=== PATIENT | female | born 1940 | race Caucasian/White ===

== ENCOUNTER → 2016-08-07 | Outpatient (CLI) | payer MEDICARE ==
[~2016-08-07] MED LIST: BACL10TA; BACL10TA PO; CALC-196 PO; CHOL100011 PO; CIPR500T78 PO; CYAN100015 SL; DIAZ10TA PO; DICL50TA3 PO; DIPH1TAB45 PO; DOXY100C2 PO; DULO60CA58; DULO60CA58 PO; DULO60CA6 PO; HYDR-1231 PO; HYDR-2890 PO; HYDR-3816 PO; HYDR-757 PO; IBP600T1 PO; IBUP-30 PO; LEVO137T17 PO; LEVOTHROID PO; LIPITOR; LVT.15T PO; MECL25TA3 PO; MELO15TA39; METO50TA7 PO; NAPR220C11 PO; OMG1KC PO; ONDA-42 SL; PRD20T PO; RALO60TA12; SCOP1PAT TD; SNN187T PO; VITA400T9 PO
--- OUTSIDE RECORDS SUMMARY | 2016-08-07 08:55 | XMS REPORT | Continuity of Care Document ---
Author Author [facility] Organization [facility] Address Unknown Phone Unavailable Care Team Providers Care Surveillance Supervisor Name Role Phone LUIS ENRIQUE CHOPRA DO PCP Insurance Providers Payer Name Policy Number Subscriber Name Relationship [employer] [place] [id number] Debra Tripathi 18 Self / Same As Patient Advance Directives Directive Response Recorded Date/Time Advance Directives No 12/11/14 1:45pm Health Care Power of Voice Intercept Technician No 12/11/14 1:45pm Organ Donor No 10/31/13 9:29am Problems Medical Problems Problem Onset Date Status Atypical chest pain Unknown Active Headache Unknown Active Nausea Unknown Active Medications Medication Dose Route Sig Days/Qty Instructions Order Date Discontinued Date Status [Lipitor] 12/04/06 09/11/11 Discontinued Levothyroxine Sodium (Levothroid) 150 Mcg PO DAILY 09/12/11 Discontinued Fish Oil 1,000 Mg PO DAILY 09/12/11 05/07/13 Discontinued Diclofenac Potassium 50 Mg PO THREE TIMES A DAY 10/17/11 05/07/13 Discontinued Metoprolol Succinate 1 Each PO DAILY 10/24/11 05/07/13 Discontinued Senna 17.2 Mg PO TWICE A DAY 10/24/11 05/07/13 Discontinued Diazepam 1 Each PO DAILY PRN 10/24/11 05/07/13 Discontinued Hydrocodone Bit/Acetaminophen 1 Each PO 10/24/11 05/07/13 Discontinued Duloxetine HCl 60 Mg PO DAILY 05/07/13 12/11/14 Discontinued Levothyroxine Sodium 150 Mcg PO DAILY 05/07/13 12/11/14 Discontinued Naproxen Sodium 440 Mg PO TWICE A DAY TAKES 2 (220MG) CAPSULES Active Ondansetron Hcl 4 Mg SL EVERY 4HRS PRN NAUSEA 10 Qty 05/07/13 Discontinued Ibuprofen 600 Mg PO Q8HR PRN PRN PAIN 20 Qty 05/07/13 12/11/14 Discontinued Doxycycline Hyclate (Vibramycin) 100 Mg PO TWICE A DAY 10 Days 10/28/13 Discontinued Baclofen (Lioresal) 1 Each PO THREE TIMES A DAY 10/28/13 12/11/14 Discontinued Ciprofloxacin HCl 500 Mg PO TWICE A DAY 6 Qty 10/28/13 12/11/14 Discontinued Hydrocodone Bit/Acetaminophen 1-2 Tab PO EVERY 4HRS PRN PAIN 14 Qty 12/11/14 Discontinued Hydrocodone Bit/Acetaminophen 1 Ea PO EVERY 6 HOURS PRN MILD PAIN 30 Qty 10/31/13 12/11/14 Discontinued Prednisone 40 Mg PO DAILY 5 Days 10/31/13 12/11/14 Discontinued Levothyroxine Sodium 137 Mcg PO DAILY 12/11/14 Active Duloxetine HCl 60 Mg PO DAILY 12/11/14 Active Calcium Carbonate/Vitamin D3 1 Tab PO DAILY 12/11/14 Active Cholecalciferol 1,000 Unit PO DAILY 12/11/14 Active Cyanocobalamin 1,000 Mcg SL DAILY 12/11/14 Active Vitamin E Mixed 400 Unit PO DAILY 12/11/14 Active Ibuprofen 400 Mg PO TWICE A DAY PRN PAIN 12/11/14 12/12/14 Discontinued Social History Social History Problem Response Recorded Date/Time Alcohol Use Occasionally Uses 12/11/2014 1:50pm Recreational Drug Use No 12/11/2014 1:50pm Recent Foreign Travel No 10/31/2013 9:29am Recent Infectious Disease Exposure No 10/31/2013 9:29am Sexually Transmitted Disease No 12/11/2014 1:50pm HIV/AIDS No 12/11/2014 1:50pm Do you dip or chew tobacco? No 12/11/2014 1:42pm Hospital Discharge Instructions Patient Instructions Physician Instructions Plan of Care/Instructions/FU: Fwup 1week Activity as Tolerated: Yes Discharge Diet: No Restrictions Care Plan Patient Instructions:: Fwup 1week Plan of Care Discharge Date 12/12/14 8:57am Instructions/Education Provided Dehydration (GEN) Prescriptions See Medications Section Referrals ORENDNAINLUIS ENRIQUE Angelina BOSWELL (Unspecified) 12/18/14 Address: [address] [place] [id number] Reason(s) for Referral: DECEMBER 18, 2014 AT 11:00 Functional Status No functional status results. Allergies, Adverse Reactions, Alerts Allergen Type Severity Reaction Status Last Updated No Known Drug Allergies Active 12/04/06 Immunizations Name Given Type Date of Pneumonia Vaccine 04/15/10 Historical Date of Influenza Vaccine 04/14/13 Historical Hepatitis A No Historical Hepatitis B No Historical Tetanus Booster (TDap) More than 5yrs Historical Vital Signs Acute Vital Signs Vital Response Date/Time Temperature (Fahrenheit) 96.8 degrees F (97.6 - 99.5) Temperature (Calculated Celsius) 36.46241 degrees C (36.4 - 37.5) Temperature Source Tympanic Pulse Rate (adult) 78 bpm (60 - 90) Respiratory Rate 18 bpm (12 - 24) O2 Sat by Pulse Oximetry 97 % (88 - 100) Blood Pressure 152/72 mm Hg Blood Pressure Mean 98 mm Hg Pain Pain Intensity 0 Height (Feet) 5 feet Height (Inches) 2.00 inches Height (Calculated Centimeters) 157.978318 cm Weight (Pounds) 117 pounds Weight (Ounces) 9.0 oz Weight (Calculated Grams) 29318.454 gm Weight (Calculated Kilograms) 53.034848 kilograms Calculated BMI 20.67 Results Laboratory Results Test Name Result Units Flags Reference Collection Date/Time Result Date/ Time Comments White Blood Count 6.9 10^3/uL 4.3-11.0 12/11/2014 12:59pm 12/11/2014 1: 06pm Red Blood Count 4.83 10^6/uL 4.35-5.85 12/11/2014 12:59pm 12/11/2014 1: 06pm Hemoglobin 15.3 G/DL 11.5-16.0 12/11/2014 12:59pm 12/11/2014 1:06pm Hematocrit 44 % 35-52 12/11/2014 12:59pm 12/11/2014 1:06pm Mean Corpuscular Volume 92 FL 80-99 12/11/2014 12:59pm 12/11/2014 1: 06pm Mean Corpuscular Hemoglobin 32 PG 25-34 12/11/2014 12:59pm 12/11/2014 1 :06pm Mean Corpuscular Hemoglobin Concent 35 G/DL 32-36 12/11/2014 12:59pm 1:06pm Red Cell Distribution Width 12.7 % 10.0-14.5 12/11/2014 12:59pm 2014 1:06pm Platelet Count 243 10^3/uL 130-400 12/11/2014 12:59pm 12/11/2014 1: 06pm Mean Platelet Volume 9.2 FL 7.4-10.4 12/11/2014 12:59pm 12/11/2014 1: 06pm Neutrophils (%) (Auto) 61 % 42-75 12/11/2014 12:59pm 12/11/2014 1:06pm Lymphocytes (%) (Auto) 14 % 12-44 12/11/2014 12:59pm 12/11/2014 1:06pm Monocytes (%) (Auto) 24 % H 0-12 12/11/2014 12:59pm 12/11/2014 1:06pm Eosinophils (%) (Auto) 1 % 0-10 12/11/2014 12:59pm 12/11/2014 1:06pm Basophils (%) (Auto) 1 % 0-10 12/11/2014 12:59pm 12/11/2014 1:06pm Neutrophils # (Auto) 4.2 X 10^3 1.8-7.8 12/11/2014 12:59pm 12/11/2014 1 :06pm Lymphocytes # (Auto) 1.0 X 10^3 1.0-4.0 12/11/2014 12:59pm 12/11/2014 1 :06pm Monocytes # (Auto) 1.6 X 10^3 H 0.0-1.0 12/11/2014 12:59pm 12/11/2014 1: 06pm Eosinophils # (Auto) 0.1 10^3/uL 0.0-0.3 12/11/2014 12:59pm 12/11/2014 1:06pm Basophils # (Auto) 0.0 10^3/uL 0.0-0.1 12/11/2014 12:59pm 12/11/2014 1: 06pm Neutrophils % (Manual) 60 % 12/11/2014 12:59pm 12/11/2014 1:39pm Band Neutrophils 9 % 12/11/2014 12:59pm 12/11/2014 1:39pm Lymphocytes % (Manual) 11 % 12/11/2014 12:59pm 12/11/2014 1:39pm Monocytes % (Manual) 19 % 12/11/2014 12:59pm 12/11/2014 1:39pm Eosinophils % (Manual) 1 % 12/11/2014 12:59pm 12/11/2014 1:39pm Basophils % (Manual) 0 % 12/11/2014 12:59pm 12/11/2014 1:39pm Blood Morphology Comment NORMAL 12/11/2014 12:59pm 12/11/2014 1: 39pm Urine Color YELLOW 12/11/2014 4:00pm 12/11/2014 5:28pm Urine Clarity CLEAR 12/11/2014 4:00pm 12/11/2014 5:28pm Urine pH 6 5-9 12/11/2014 4:00pm 12/11/2014 5:28pm Urine Specific [place] 1.010 * 1.016-1.022 12/11/2014 4:00pm 2014 5:28pm Urine Protein 2+ * NEGATIVE 12/11/2014 4:00pm 12/11/2014 5:28pm Urine Glucose (UA) NEGATIVE NEGATIVE 12/11/2014 4:00pm 12/11/2014 5: 28pm Urine RBC (Auto) 3+ * NEGATIVE 12/11/2014 4:00pm 12/11/2014 5:28pm Urine Ketones NEGATIVE NEGATIVE 12/11/2014 4:00pm 12/11/2014 5:28pm Urine Nitrite NEGATIVE NEGATIVE 12/11/2014 4:00pm 12/11/2014 5:28pm Urine Bilirubin NEGATIVE NEGATIVE 12/11/2014 4:00pm 12/11/2014 5: 28pm Urine Urobilinogen NORMAL MG/DL NORMAL 12/11/2014 4:00pm 12/11/2014 5: 28pm Urine Leukocyte Esterase 2+ * NEGATIVE 12/11/2014 4:00pm 12/11/2014 5: 28pm Urine RBC 0-2 /HPF 12/11/2014 4:00pm 12/11/2014 5:28pm Urine WBC 0-2 /HPF 12/11/2014 4:00pm 12/11/2014 5:28pm Urine Bacteria NEGATIVE /HPF 12/11/2014 4:00pm 12/11/2014 5:28pm Urine Squamous Epithelial Cells 5-10 /HPF 12/11/2014 4:00pm 2014 5:28pm Urine Crystals NONE /[facility] 12/11/2014 4:00pm 12/11/2014 5:28pm Urine Casts PRESENT /[facility] 12/11/2014 4:00pm 12/11/2014 5:28pm Urine Hyaline Casts RARE /[facility] 12/11/2014 4:00pm 12/11/2014 5:28pm Urine Mucus NEGATIVE /[facility] 12/11/2014 4:00pm 12/11/2014 5:28pm Urine Culture Indicated NO 12/11/2014 4:00pm 12/11/2014 5:28pm Sodium Level 138 MMOL/L 135-145 12/11/2014 12:59pm 12/11/2014 1:25pm Potassium Level 3.1 MMOL/L L 3.6-5.0 12/11/2014 12:59pm 12/11/2014 1: 25pm Chloride Level 105 MMOL/L 98-107 12/11/2014 12:59pm 12/11/2014 1:25pm Carbon Dioxide Level 25 MMOL/L 21-32 12/11/2014 12:59pm 12/11/2014 1: 25pm Anion Gap 8 MMOL/L 5-14 12/11/2014 12:59pm 12/11/2014 1:25pm Blood Urea Nitrogen 14 MG/DL 7-18 12/11/2014 12:59pm 12/11/2014 1:25pm Creatinine 0.77 MG/DL 0.60-1.30 12/11/2014 12:59pm 12/11/2014 1:25pm BUN/Creatinine Ratio 18 12/11/2014 12:59pm 12/11/2014 1:25pm Estimat Glomerular Filtration Rate > 60 12/11/2014 12:59pm 2014 1:25pm GFR INTERPRETIVE DATA UNITS FOR ESTIMATED GFR (eGFR): mL/min/1.73 M2 REFERENCE RANGE FOR ESTIMATED GFR (eGFR) eGFR NORMAL eGFR >60 MODERATELY DECREASED eGFR 30-59 SEVERLY DECREASED eGFR 15-29 KIDNEY FAILURE <15 (OR DIALYSIS) Glucose Level 104 MG/DL 70-105 12/11/2014 12:59pm 12/11/2014 1:25pm Calcium Level 9.7 MG/DL 8.5-10.1 12/11/2014 12:59pm 12/11/2014 1:25pm Total Bilirubin 0.3 MG/DL 0.1-1.0 12/11/2014 12:59pm 12/11/2014 1:25pm Alkaline Phosphatase 71 U/L 40-136 12/11/2014 12:59pm 12/11/2014 1: 25pm Aspartate Amino Transf (AST/SGOT) 18 U/L 5-34 12/11/2014 12:59pm 2014 1:25pm Alanine Aminotransferase (ALT/SGPT) 14 U/L 0-55 12/11/2014 12:59pm 1:25pm Total Protein 6.9 G/DL 6.4-8.2 12/11/2014 12:59pm 12/11/2014 1:25pm Albumin 4.0 G/DL 3.2-4.5 12/11/2014 12:59pm 12/11/2014 1:25pm Amylase Level 18 U/L L 25-125 12/11/2014 12:59pm 12/11/2014 1:25pm Lipase 7 U/L L 8-78 12/11/2014 12:59pm 12/11/2014 1:25pm Thyroid Stimulating Hormone (TSH) 5.56 UIU/ML H 0.35-4.94 12/11/2014 12: 59pm 12/11/2014 1:46pm Procedures Procedure Status Date Provider(s) Tracing only of electrocardiogram completed 12/11/14 LUIS ENRIQUE CHOPRA DO Encounters Encounter Location Date/Time Registered Clinic [facility] 01/03/15 7:59pm Discharged Inpatient [facility] 12/11/14 11:55am
--- NOTE | 2016-08-07 12:22 | Diagnostic Imaging Report ---
EXAM: DEXA scan. INDICATION: Screening for osteoporosis. FINDINGS: The bone mineral density of the hips and spine was measured. This exam was compared to the prior study of 07/20/2014. The T score for the spine is -4.1. On the prior exam, the T score was -4.5. The T score for the left hip is -1.9 and for the right hip -2.0. On the prior exam, the respective T. scores for each hip was -2.2. IMPRESSION: There has been a slight increase in the bone mineral density of the hips and spine. The T score for the spine however still indicates severe osteoporosis. The T score for the hips still fall within the range of osteopenia. Dictated by: Dictated on workstation # [id number]
== END ==
LOC: RAD 08:51
PROVIDERS: ATTEND Family Medicine
DX: M80.00XD Age-related osteoporosis with current pathological fracture, unspecified site, subsequent encounter for fracture with routine healing (principal)
CPT/HCPCS: 77080

== ENCOUNTER 2016-11-24 08:47 | Day surgery (SDC) | payer MEDICARE ==
[~2016-11-24] VITALS: Ht 157.5 cm; Wt 53.1 kg
[2016-11-24] MEDS ORDERED: NS IV 500 ML 500 ML ONE (08:52)
[2016-11-24] MEDS ORDERED: ACET-2267 PO (09:19)
[2016-11-24] MEDS ORDERED: NS IV 500 ML 500 ML IV PRN (09:20)
--- NOTE | 2016-11-24 09:22 | Conscious Sedation/ASA ---
Conscious Sedation Pre-Proced Time Reviewed: 09:22 ASA Class: 2 Airway Mallampati Classification: (redding appropriate class) I. II. III, IV Lungs Heart ASA score ASA 1: a normal healthy patient ASA 2: a patient with a mild systemic disease (mid diabetes, controlled hypertension, obesity ASA 3: a patient with a severe systemic disease that limits activity (angina , COPD, prior Myocardial infarction) ASA 4: a patient with an incapacitating disease that is a constant threat to life (CHF, renal failure) ASA 5: a moribund patient not expected to survive 24 hrs. (ruptured aneurysm) ASA 6: a declared brain patient whose organs are being harvested. For emergent operations, add the letter E after the classification Grade 2 Sedation Plan: Discussed options with patient/fam Note The patient is an appropriate candidate to undergo the planned procedure, sedation, and anesthesia. The patient immediately re-assessed prior to indication. VIVIENNE NICHOLAS MD Nov 24, 2016 9:22 am
[2016-11-24 09:26] VITALS: BP 140/72
[2016-11-24] MEDS ORDERED: NALOXONE 0.4 MG/ML 1 ML (NARCAN) VIAL IVP PRN (09:30)
[2016-11-24] MEDS ORDERED: FLUMAZENIL (ROMAZICON) 0.1 MG/ML 5 ML VIAL INJ PRN (09:30)
[2016-11-24] MEDS ORDERED: HURRICAINE EXT TUBE (BENZOCAINE) XX PRN (09:30)
[2016-11-24] MEDS ORDERED: fentaNYL INJECTION 100 MCG/2 ML AMP ONE ×2 (09:43→09:44)
[2016-11-24] MEDS ORDERED: MIDAZOLAM 2 MG/2 ML (VERSED) VIAL ONE ×4 (09:44)
[2016-11-24] MEDS: fentaNYL INJECTION 100 MCG/2 ML AMP IVP PRN ×2 (09:59→10:02)
[2016-11-24] MEDS: MIDAZOLAM 2 MG/2 ML (VERSED) VIAL IVP PRN ×2 (10:00→10:03)
--- NOTE | 2016-11-24 10:29 | Endoscopy Procedure Report ---
Endoscopy Report Date: Nov 24, 2016 Preoperative Diagnosis: GERD. Personal history of polyps Study Performed: Upper Endoscopy, Colonoscopy Procedure Instrument: Endoscope Endo Procedure/Findings Findings 1.: Diverticulosis, Hiatal Hernia, Gastric Ulcer, Duodenal Ulcer Recommendations: Recommendations: 1.: Colonscopy in 5 years, Start Medication(s) Copy Copies To 1: LUIS ENRIQUE CHOPRA XAVIER M MD Nov 24, 2016 10:28 am
[2016-11-24] MEDS ORDERED: PANT40TA2 PO (10:30)
--- NOTE | 2016-11-24 10:32 | Discharge Inst-Simple/Standard ---
Discharge Inst-Standard Discharge Medications New, Converted or Re-Newed RX: RX on Chart Patient Instructions/Follow Up Plan of Care/Instructions/FU: follow-up with her primary Activity as Tolerated: Yes Discharge Diet: No Restrictions VIVIENNE NICHOLAS MD Nov 24, 2016 10:32 am
[2016-11-24 10:40] VITALS: BP 165/86
[2016-11-24 11:10] VITALS: BP 132/82
[2016-11-24 11:29] VITALS: BP 132/82
--- NOTE | 2016-11-24 12:09 | OPERATIVE REPORT ---
DATE OF SERVICE: 11/24/2016 PROCEDURES: 1. Upper GI endoscopy with antral biopsy. 2. Colonoscopy. SURGEON: Wenceslao INDICATION FOR PROCEDURE: This lady came in for an upper endoscopy to evaluate symptoms of reflux disease and colonoscopy for polyp surveillance. Informed consent was obtained after reviewing the procedures in detail. DESCRIPTION OF PROCEDURE: 1. Upper GI endoscopy/antral biopsy: She was placed in left lateral decubitus position and her vital signs were monitored. Conscious sedation was achieved using Versed and fentanyl. The flexible gastroscope was then introduced down the esophagus, past the stomach, into the proximal duodenum. FINDINGS: 1. Esophagus: Quite tortuous with a short hiatal hernia. 2. Stomach: Multiple, shallow antral erosions were found. Biopsy for H pylori was obtained. 3. Duodenum: A few shallow erosions were found along the first part. She tolerated the procedure well and was turned around in preparation for colonoscopy. IMPRESSION: Symptoms of reflux disease and epigastric discomfort. Antral and duodenal erosions. Helicobacter status pending. 2. Colonoscopy: Digital rectal examination was unremarkable. The colonoscope was then introduced into the rectum and advanced all the way up to the cecum. The scope was then withdrawn slowly and the mucosa examined in a systematic fashion. FINDINGS: 1. Very few sigmoid diverticula. 2. No recurrent polyps were found. She tolerated the procedure well and was taken back to the nursing area in a stable condition. IMPRESSION: Polyp surveillance. No recurrence. Recommend repeating in 5 years. Job ID: [id number] DocumentID: [id number] Dictated Date: 11/24/2016 10:27:33 Ride Operator Date: 11/24/2016 12:08:08 Dictated By: VIVIENNE NICHOLAS MD [facility]
== END 2016-11-24 11:29 | disposition home or self-care (01) ==
LOC: ENDO 08:47
PROVIDERS: ATTEND Surgery
DX: K25.9 Gastric ulcer, unspecified as acute or chronic, without hemorrhage or perforation (principal); K57.30 Diverticulosis of large intestine without perforation or abscess without bleeding; K26.9 Duodenal ulcer, unspecified as acute or chronic, without hemorrhage or perforation; Z86.010 Personal history of colon polyps; E03.9 Hypothyroidism, unspecified; M19.90 Unspecified osteoarthritis, unspecified site; F17.210 Nicotine dependence, cigarettes, uncomplicated; J42 Unspecified chronic bronchitis; Z79.899 Other long term (current) drug therapy

== ENCOUNTER → 2017-09-23 | Outpatient (CLI) | payer MEDICARE ==
[~2017-09-23] MED LIST changes: +ACET-2267 PO; +HYDR-34 PO; -HYDR-3816 PO; +PANT40TA2 PO; -SCOP1PAT TD; +SCOP1PAT11 TD
--- NOTE | 2017-09-23 10:04 | Diagnostic Imaging Report ---
PROCEDURE: US carotid duplex, bilateral. TECHNIQUE: Multiple real-time grayscale images were obtained over the carotid arteries in various projections, bilaterally. Additional duplex Doppler and color Doppler images were also obtained. INDICATION: Hypertension and headaches. There is mild plaquing identified at the carotid bifurcations bilaterally. There is some tortuosity of the internal carotid arteries bilaterally. No significant velocity elevation or stenosis is seen. Both vertebral arteries demonstrate antegrade flow. IMPRESSION: No evidence of a hemodynamically significant stenosis. Parameters based on the consensus panel Chowdhury-Scale and Doppler ultrasound criteria published April 2003, Radiology, Volume 229. DOPPLER (peak systolic velocity M/S Right Left CCA .76 .88 ICA Proximal .83 .80 ICA Mid .63 1.12 ICA Distal 1.12 .94 RATIO 1.5 1.3 ECA .78 .76 VERT .64 .24 Dictated by: Dictated on workstation # [id number]
== END ==
LOC: RAD 08:57
PROVIDERS: ATTEND Nurse Practitioner Family
DX: I10 Essential (primary) hypertension (principal)
CPT/HCPCS: 93880

== ENCOUNTER → 2017-10-14 | Outpatient (CLI) | payer MEDICARE ==
--- NOTE | 2017-10-14 08:41 | Diagnostic Imaging Report ---
PROCEDURE: CT abdomen and pelvis without contrast. TECHNIQUE: Multiple contiguous axial images were obtained through the abdomen and pelvis without the use of intravenous contrast. INDICATION: Left lower quadrant pain. COMPARISON: Comparison is made with prior CT from 09/11/2011. FINDINGS: Imaging through the lung bases does show some linear scarring or atelectasis of bilateral lower lobes. No discrete liver mass is identified. The gallbladder is surgically absent. Pancreas and spleen are unremarkable. The kidneys are unremarkable. Aorta is calcified but not aneurysmal. No significant small or large bowel distention is seen. There is a moderate amount of stool in the colon. There is no free fluid. No loculated collection is identified. No definite inflammatory process is seen. The bladder is unremarkable. IMPRESSION: 1. Bibasilar subsegmental atelectasis or scarring. 2. Moderate stool in the colon. 3. No acute feature is detected. Dictated by: Dictated on workstation # [id number]
== END ==
LOC: RAD 08:03
PROVIDERS: ATTEND Family Medicine
DX: R10.32 Left lower quadrant pain (principal); J98.11 Atelectasis; R19.4 Change in bowel habit
CPT/HCPCS: 74176

== ENCOUNTER 2018-03-18 07:48 | Emergency (ER) | payer MEDICARE, MEDICAID ==
[~2018-03-18] VITALS: Ht 154.9 cm; Wt 51.7 kg
--- NOTE | 2018-03-18 09:18 | ED Lower Extremity ---
General Chief Complaint: Lower Extremity Stated Complaint: LEG PAIN;POSS BLOOD CLOT Nursing Triage Note: PT STATES SHE GOT UP AT 0100 TO CLEAN HER CARPET AND HER RT LOWER LEG WAS HURTING, WANTING TO RULE OUT BLOOD CLOT, PAIN IS ON THE ANTERIOR LEG. Nursing Sepsis Screen: No Definite Risk Source: patient Exam Limitations: no limitations History of Present Illness Date Seen by Provider: Mar 18, 2018 Time Seen by Provider: 08:28 Initial Comments This 77-year-old woman presents to the emergency room with pain, swelling, and warmth to the proximal right lower leg. She is concerned about DVT. She does have history of prior DVT and is not presently anticoagulated. She noted the symptoms when she got up and around at 06:00 this morning. She denies any known injury. She has been moving and has been more active than usual. Allergies and Home Medications Allergies Coded Allergies: No Known Drug Allergies (Verified , 01/25/15) Home Medications Acetaminophen 500 Mg Tablet, 1,000 MG PO BID, (Reported) Calcium Carbonate/Vitamin D3 1 Each Tablet, 1 TAB PO DAILY, (Reported) Cholecalciferol 1,000 Unit Capsule, 1,000 UNIT PO DAILY, (Reported) Cyanocobalamin 1,000 Mcg Tab.subl, 1,000 MCG SL DAILY, (Reported) Duloxetine HCl 60 Mg Capsule.dr, 60 MG PO DAILY, (Reported) Levothyroxine Sodium 137 Mcg Tablet, 137 MCG PO DAILY, (Reported) Meclizine HCl 25 Mg Tablet, 1-2 TAB PO Q6H Prescribed by: GABRIELLE GTZ on 11/17/15 1026 Pantoprazole Sodium 40 Mg Tablet.dr, 40 MG PO DAILY Prescribed by: VIVIENNE NICHOLAS on 11/24/16 1030 Vitamin E Mixed 400 Unit Tablet, 400 UNIT PO DAILY, (Reported) Patient Home Medication List Home Medication List Reviewed: Yes Review of Systems Constitutional: no symptoms reported EENTM: no symptoms reported Respiratory: no symptoms reported Cardiovascular: no symptoms reported Gastrointestinal: no symptoms reported Genitourinary: no symptoms reported : No Musculoskeletal: see HPI Skin: no symptoms reported Psychiatric/Neurological: No Symptoms Reported Past Vahfiqn-Vrzkgr-Lpycsa Hx Patient Social History Alcohol Use: Rarely Uses Alcohol Beverage of Choice: Wine Recreational Drug Use: No Smoking Status: Current Everyday Smoker Type Used: Cigarettes Recent Foreign Travel: No Contact w/Someone Who Travel: No Recent Infectious Disease Expo: No Recent Hopitalizations: No Immunizations Up To Date Tetanus Booster (TDap): More than 5yrs Date of Pneumonia Vaccine: Apr 15, 2010 Date of Influenza Vaccine: Apr 14, 2013 Seasonal Allergies Seasonal Allergies: Yes Past Medical History Surgeries: Yes (BACK) Abdominal, Appendectomy, Bowel Surgery, Section, Gallbladder, Hysterectomy, Oophorectomy, Orthopedic Respiratory: Yes Chronic Bronchitis Cardiac: Yes Deep Vein Thrombosis Neurological: No : No Reproductive Disorders: No Female 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, Menopausal Sexually Transmitted Disease: No HIV/AIDS: No Genitourinary: Yes UTI-Chronic Gastrointestinal: Yes Gastroesophageal Reflux, Obstructive Bowel, Polyps Musculoskeletal: Yes (CHRONIC NECK AND BACK PAIN) Degenerate Disk Disease, Osteoporosis, Arthritis, Fibromyalgia, Back Injury, Chronic Back Pain Endocrine: Yes Hypothyroidsim Loss of Vision: Denies Hearing Impairment: Denies Cancer: No Psychosocial: Yes Depression Integumentary: No Blood Disorders: No Adverse Reaction/Blood Tranf: No Family Medical History Alzheimer's disease 19 MOTHER Cataracts 19 MOTHER Dementia 19 MOTHER Neoplasm G8 BROTHER Respiratory disorder 19 FATHER No Family History of: AIDS Abdominal aortic aneurysm [place]'s disease Alcoholism Aphasia Arthritis Asthma Cancer of mouth Cardiovascular disease Colon cancer Completed stroke Congenital disease Congenital heart disease Coronary thrombosis Cystic fibrosis Deafness or hearing loss Diabetes mellitus Drug abuse Dysphasia Fibrocystic disease of breast Gastroenteritis Glaucoma Headache disorder Hypercholesterolemia Hypertension Infertility Kidney disease Myocardial infarction Not obtainable due to adoption Osteoporosis Parkinson's disease Prostate cancer Psychosocial problem Seizure disorder Severe allergy Thyroid disease Tuberculosis Visual disorder Physical Exam Vital Signs Vital Signs - First Documented 03/18/18 08:05 Temp 97.2 Pulse 79 Resp 18 B/P (MAP) 162/78 (106) Pulse Ox 98 O2 Delivery Room Air Capillary Refill : Less Than 3 Seconds Height, Weight, BMI Height: 5'1.00" Weight: 114lbs. 0.0oz. 51.433161ll; 21.4 BMI Method:Stated General Appearance: WD/WN, no apparent distress HEENT: PERRL/EOMI, normal ENT inspection Neck: normal inspection Cardiovascular: regular rate, rhythm, no edema, no murmur Respiratory: lungs clear, normal breath sounds, no respiratory distress, no accessory muscle use Legs: right leg pain, right leg soft tissue tenderness, right leg swelling Knees: bilateral knee non-tender, bilateral knee normal inspection Ankles: bilateral ankle non-tender, bilateral ankle normal inspection Feet: right foot non-tender, right foot normal inspection, right foot normal range of motion, right foot no evidence of injury Neurologic/Tendon: normal sensation, normal motor functions, normal tendon functions 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 See report below: NAME: [facility]SELL DE DIOS [facility] REC#: [id number] PT STATUS: REG ER : 1940 PHYSICIAN: COLTON REBOLLEDO MD ADMIT DATE: 03/18/18/ER Signed Date of Exam: 03/18/18 US VENOUS LOWER EXT RT INDICATION: Right leg pain. Right leg venous Doppler study was performed in the routine fashion with color flow Doppler and waveform analysis. FINDINGS: The right common femoral vein, superficial femoral vein, popliteal vein and visualized portion of the tibial veins show normal compressibility and venous flow patterns. There is normal augmentation. IMPRESSION: No evidence of deep vein thrombosis of the major veins of the right leg. Dictated by: Dictated on workstation # [id number] Dict: 03/18/18922 Trans: 03/18/18923 Interpreted by: DORY MCCULLOUGH MD Electronically signed by: DORY MCCULLOUGH MD 03/18/18923 Departure Impression Primary Impression: Right leg pain Disposition: 01 HOME, SELF-CARE Condition: Stable Departure-Patient Inst. Decision time for Depature: 09:17 Referrals: LUIS ENRIQUE CHOPRA DO (PCP/Family) Primary Care Physician Patient Instructions: NO INSTRUCTIONS GIVEN Add. Discharge Instructions: You may continue to use Tylenol for pain. Gentle stretching may also help alleviate pain. Return to care if symptoms are worsening or not improving as expected. All discharge instructions reviewed with patient and/or family. Voiced understanding. Copy Copies To 1: LUIS ENRIQUE CHOPRA JOSHUA T MD Mar 18, 2018 09:18
[2018-03-18 09:23] VITALS: BP 162/78
--- NOTE | 2018-03-18 09:26 | Diagnostic Imaging Report ---
INDICATION: Right leg pain. Right leg venous Doppler study was performed in the routine fashion with color flow Doppler and waveform analysis. FINDINGS: The right common femoral vein, superficial femoral vein, popliteal vein and visualized portion of the tibial veins show normal compressibility and venous flow patterns. There is normal augmentation. IMPRESSION: No evidence of deep vein thrombosis of the major veins of the right leg. Dictated by: Dictated on workstation # [id number]
== END 2018-03-18 09:23 | disposition home or self-care (01) ==
LOC: EDUNIT# 07:48 → ER 07:50
DX: M79.604 Pain in right leg (principal); K21.9 Gastro-esophageal reflux disease without esophagitis; M81.0 Age-related osteoporosis without current pathological fracture; E03.9 Hypothyroidism, unspecified; F32.9 Major depressive disorder, single episode, unspecified; F17.210 Nicotine dependence, cigarettes, uncomplicated; Z86.718 Personal history of other venous thrombosis and embolism; Z91.14 Patient's other noncompliance with medication regimen; Z90.89 Acquired absence of other organs; Z98.890 Other specified postprocedural states; Z90.710 Acquired absence of both cervix and uterus; Z87.09 Personal history of other diseases of the respiratory system; Z87.440 Personal history of urinary (tract) infections; Z86.010 Personal history of colon polyps; Z87.19 Personal history of other diseases of the digestive system